=== PATIENT | male | born 1990 | race Caucasian/White ===

== ENCOUNTER 2016-12-10 20:10 | Emergency (ER) | payer SELFPAY ==
[2016-12-11] MEDS ORDERED: BOOSTRIX IM ONE (03:44)
[2016-12-11] MEDS ORDERED: MOTRIN PO ONE (03:44)
--- NOTE | 2016-12-11 03:46 | Emergency Department Report ---
ED Animal Bite HPI - General Chief Complaint: Animal Bite Stated Complaint: DOG BITE Time Seen by Provider: 12/11/16 03:25 Source: patient Mode of arrival: Ambulatory Limitations: No Limitations - History of Present Illness Initial Comments: This is a 26-year-old male that presents with an abrasion to right inner hand status post bite that occurred yesterday morning 11 AM. Patient stated the dog is his own dog. Patient stated was giving his dog a piece of chicken when the dog ran and snatched out of his hand and caused an abrasion to the palmar hand. Patient stated the dog is up-to-date with vaccines. Rates pain as a 6 out of 10 and describes as sharp. Patient denies any fever, chills, numbness, tingling , abdominal pain, headache, stiff neck, nausea vomiting, chest pain, shortness of breath. Patient stated he just took his dog to [facility] last week for his shots. Patient states allergies to penicillin. Denies past medical history. Patient stated does not remember his last tetanus booster. MD Complaint: animal bite (dog) -: days(s) (1) Location: other (right palmar) Right: Hand (palmar) Animal: dog Animal Control Notified: No Description: household pet Mechanism: bite Pain Description: sharp Severity scale (0 -10): 6 Context: playing with animal Associated Symptoms: denies: erythema, discharge from wound, bleeding, fever, chills, rash, loss of consciousness, cough, headache, diaphoresis, shortness of breath - Related Data Patient Tetanus UTD: No Previous Rx's Medication Instructions Recorded Last Taken Type Ibuprofen [Motrin 600 MG tab] 600 mg PO Q8H PRN #14 tablet 12/11/16 Unknown Rx Sulfamethoxazole/Trimethoprim 1 each PO BID #14 tablet 12/11/16 Unknown Rx [Bactrim DS TAB] Allergies Allergy/AdvReac Type Severity Reaction Status Date / Time Penicillins Allergy Unknown Verified 12/10/16 20:45 ED Review of Systems ROS: Stated complaint: DOG BITE Other details as noted in HPI Constitutional: denies: chills, fever Eyes: denies: eye pain, eye discharge, vision change ENT: denies: ear pain, throat pain Respiratory: denies: cough, shortness of breath, wheezing Cardiovascular: denies: chest pain, palpitations Endocrine: no symptoms reported Gastrointestinal: denies: abdominal pain, nausea, diarrhea Genitourinary: denies: urgency, dysuria Musculoskeletal: denies: back pain, joint swelling, arthralgia Skin: denies: rash, lesions Neurological: denies: headache, weakness, paresthesias Psychiatric: denies: anxiety, depression Hematological/Lymphatic: denies: easy bleeding, easy bruising ED Past Medical Hx - Past Medical History Previous Medical History?: No - Surgical History Past Surgical History?: No - Social History Smoking Status: Former Smoker Substance Use Type: Alcohol - Medications Home Medications: Home Medications Medication Instructions Recorded Confirmed Last Taken Type Ibuprofen [Motrin 600 MG tab] 600 mg PO Q8H PRN #14 tablet 12/11/16 Unknown Rx Sulfamethoxazole/Trimethoprim 1 each PO BID #14 tablet 12/11/16 Unknown Rx [Bactrim DS TAB] ED Physical Exam - General Limitations: No Limitations General appearance: alert, in no apparent distress - Head Head exam: Present: atraumatic, normocephalic - Eye Eye exam: Present: normal appearance, PERRL, EOMI. Absent: scleral icterus, conjunctival injection, nystagmus, periorbital swelling, periorbital tenderness Pupils: Present: normal accommodation - ENT ENT exam: Present: normal exam, normal orophraynx, mucous membranes moist, TM's normal bilaterally, normal external ear exam - Neck Neck exam: Present: normal inspection, full ROM. Absent: tenderness, meningismus, lymphadenopathy, thyromegaly - Respiratory Respiratory exam: Present: normal lung sounds bilaterally. Absent: respiratory distress, wheezes, rales, rhonchi, stridor - Cardiovascular Cardiovascular Exam: Present: regular rate, normal rhythm, normal heart sounds. Absent: bradycardia, tachycardia, irregular rhythm, systolic murmur, diastolic murmur, rubs, gallop - GI/Abdominal GI/Abdominal exam: Present: soft, normal bowel sounds. Absent: distended, tenderness, guarding, rebound, rigid - Rectal Rectal exam: Present: deferred - Extremities Exam Extremities exam: Present: normal inspection, full ROM, normal capillary refill. Absent: tenderness, pedal edema, joint swelling, calf tenderness - Expanded Upper Extremity Exam Right General: Present: normal inspection Shoulder Exam: Present: normal inspection, full ROM. Absent: tenderness, swelling, abrasion, laceration Upper Arm exam: Present: normal inspection, full ROM. Absent: tenderness, swelling, abrasion, laceration Elbow exam: Present: normal inspection, full ROM. Absent: tenderness, swelling , abrasion, laceration, ecchymosis Forearm Wrist exam: Present: normal inspection, full ROM. Absent: tenderness, swelling, abrasion, laceration, ecchymosis Hand Wrist exam: Present: normal inspection, full ROM, abrasion (2 cm ). Absent : tenderness, swelling, laceration, ecchymosis, deformity, crepidus, dislocation , erythema, amputation, nail avulsion, subungual hematoma Hand L/R Front: 1 - Positive: normal inspection, abrasion (2 cm). Negative: laceration, nail injury (#), foreign body, amputation, avulsion Neuro motor exam: Present: wrist extension intact, thumb adduction intact, fingers 2-5 abduction intact Neurosensory exam: Present: 2-point discrimination, radial nerve intact, ulnar nerve intact, median nerve intact Vascular: Present: vascular compromise, normal capillary refill - Back Exam Back exam: Present: normal inspection, full ROM. Absent: tenderness, CVA tenderness (R), CVA tenderness (L), muscle spasm, paraspinal tenderness, vertebral tenderness, rash noted - Neurological Exam Neurological exam: Present: alert, oriented X3, CN II-XII intact, normal gait - Psychiatric Psychiatric exam: Present: normal affect, normal mood - Skin Skin exam: Present: warm, dry, intact, normal color. Absent: rash ED Course Vital Signs 12/10/16 20:45 Temperature 98.4 F Pulse Rate 77 Respiratory 18 Rate Blood Pressure 113/73 O2 Sat by Pulse 100 Oximetry - Reevaluation(s) Reevaluation #1: 12/11/16 04:01 Patient was instructed to observe the dog for 10 days for any abnormal behaviors and his abnormal behaviors are present report back to emergency room for possibility of a rabies vaccine series. Critical care attestation.: If time is entered above; I have spent that time in minutes in the direct care of this critically ill patient, excluding procedure time. ED Disposition Clinical Impression: Dog bite of extremity, Abrasion Disposition: DISCHARGED TO HOME OR SELFCARE Is pt being admited?: No Does the pt Need Aspirin: No Condition: Stable Instructions: Animal Bite (ED) Additional Instructions: Observe the dog for 10 days for any abnormal behaviors and his abnormal behaviors are present report back to emergency room for possibility of a rabies vaccine series. Take full course of antibiotics as prescribed for 7 days. Prescriptions: Ibuprofen [Motrin 600 MG tab] 600 mg PO Q8H PRN #14 tablet PRN Reason: Pain Sulfamethoxazole/Trimethoprim [Bactrim DS TAB] 1 each PO BID #14 tablet Referrals: PRIMARY CAREMD [Primary Care Provider] - 3-5 Days [facility] [Outside] - 3-[address] [facility] [Outside] - 3-5 Days FABIO EGAN MD [Staff Physician] - 3-5 Days Forms: Work/School Release Form(ED)
[2016-12-11 04:21] VITALS: BP 120/78
== END 2016-12-11 04:19 | disposition home or self-care (01) ==
LOC: ED 20:10
DX: S61.451A Open bite of right hand, initial encounter (principal); S60.511A Abrasion of right hand, initial encounter; W54.0XXA Bitten by dog, initial encounter; Y93.9 Activity, unspecified; Y92.9 Unspecified place or not applicable; Y99.9 Unspecified external cause status
CPT/HCPCS: 90471; 90715; 99282